=== PATIENT | male | born 1965 | race Caucasian/White ===

== ENCOUNTER 2018-12-30 02:55 | Emergency (ER) | payer OTHER, SELFPAY ==
[2018-12-30] VITALS (45 sets, daily range): BP systolic 81–147; BP diastolic 43–88; PULSE 37–85; RESP 11–24; TEMP 36.8; O2SAT 95–100
--- NOTE | 2018-12-30 03:19 | ED.GENADUL_ITS ---
Discharge Plan Disposition Patient Disposition: [facility] Discharge Details Chief Complaint: Chest Pain Clinical Impression: Chest pain, Symptomatic bradycardia Primary Care Provider: SUMMER LLANOS ED Provider: Nader Leonard Home Meds and New Rx's Prescriptions: No Action No Known Home Meds RF: 0 Medical Decision Making 53-year-old otherwise healthy and active male presenting with atypical chest pain. It is constant at this point. Initial EKG is sinus bradycardia at 48. Normal axis and intervals. No acute ST changes. Specifically no elevation or depression. History seems atypical for cardiac chest pain given his amount of physical activity and lack of previous symptoms. However, pain has become constant at this point so we will get laboratory studies including 2 sets of troponins. He is describing pleuritic pain. Doubt this is PE because of age cannot be perked out. D-dimer ordered as well. Patient will be given aspirin and will try a nitroglycerin. IV was established. Patient started to complain of being lightheaded. He was noted to be more bradycardic on monitor. His blood pressure was noted to be in the 80s. He was pale. He was laid flat. Initially thought possibly vagal reaction to the IV start. However the monitor showed no P waves. He also did not recover quickly as one would expect with a vagal reaction. An EKG was obtained. It shows narrow complex bradycardia with no P waves. There are no ST changes. Patient did not recover. Fluid bolus was started. 1 mg of atropine was given. Heart rate responded to this almost immediately. P waves returned. He was noted to be sinus on the monitor and blood pressure returned to normal. Patient felt better. He was given his aspirin. Initially held off on the nitroglycerin but then he reported worsening pain. He was given 2 sublingual nitroglycerin with minimal change in pain. Then started reporting pain into the back. Repeat EKG at this time shows sinus rhythm at 81. Continues to have normal axis and intervals. Continues to have normal ST segments. Labs are still pending. Because of the change in pain and worsening pain with associated bradycardia, I am going to scan and rule out dissection. CT scan of the chest and abdomen is read preliminarily by radiology as negative. There is no dissection, aneurysm, PE, or other abnormality. Patient did receive 2 sublingual nitroglycerin with some change in discomfort but not much. He was given 4 mg of morphine and feels much better though was not completely pain-free. He did receive aspirin. His labs are unremarkable including a negative first troponin. He has remained stable since receiving atropine. [facility] was called but is not accepting transfers for cardiology unless STEMI related. [facility] was contacted. Case discussed with cardiology, Dr. Dykes. Reviewed the patient's presentation, ED course, CT findings. Concern for possibility of a posterior CT. Recommend Plavix and heparin and transferring to ED for evaluation at [facility]. Patient has remained stable. Pacer pads are on the patient's chest but have not been needed. Work on arranging transport possibly by air if the [facility] crew is flying. Lab Data Lab results reviewed: Yes I reviewed the patient's lab results. ECG Data Attestation: I personally reviewed and interpreted this ECG (s) as follows: Interpretation: See MDM. HPI General Mode of arrival: ambulatory . Date/Time Provider Initiated Documentation: 12/30/18 02:56 . Limitations to Documentation: no limitations . Information obtained by: patient . HPI Narrative: Patient presents to ED with complaints of upper chest pain. Patient noticed it tonight when trying to go to bed. It was kind of right-sided and upper in nature and would come and go. It is now on both sides of the upper chest described as a burning pain that is pleuritic in nature. At this point it is constant. He does not really feel short of breath. He denies lightheadedness, dizziness, nausea. He has no radiation to the back. He has not had this previously. He is physically active and normally has a low heart rate. Typically has no issues when exercising. He has no significant past medical history. He does report a paternal grandfather that at a young age from heart attack. He denies fever or cough. He denies leg pain or swelling. Related Data Home Medications Medication Instructions Recorded Confirmed Unknown [No Known Home Meds] 12/30/18 12/30/18 Allergies Allergy/AdvReac Type Severity Reaction Status Date / Time No Known Allergies Allergy Unverified 12/30/18 03:08 General Stated Complaint: Chest Pain DALIA: 3 Review of Systems Review of Systems 05/28 Review of Systems completed and is negative except as stated above in HPI (Systems reviewed: Const, Eyes, ENT, Resp, CV, GI, , MSK, Skin, Neuro) PFSH Social History Smoking/Tobacco Use Status: Never Alcohol Intake: current Alcohol Intake frequency: holidays/special occasions only Drug use: Never Do you feel safe at home: Yes Do you feel safe in your relationship?: Yes Exam Narrative Exam Narrative: Vitals: Afebrile. Bradycardic otherwise normal vitals. Const: WDWN male in NAD. HEENT: NC/AT. Normal facial exam. Eyes: Normal conjunctiva and sclera. Neck: Supple. Trachea midline. Lungs: Normal respiratory effort. Lungs are clear. Cor: RRR without murmur/gallop. Good radial pulses. GI: Soft. NT/ND. No guarding or rebound. Neuro: A+O x 3. CN grossly in tact. Good strength and no focal deficit. Ext: No C/C/E. No calf tenderness. Skin: Warm and dry without rash. Course Vital Signs Temperature 98.2 F 12/30/18 03:01 Pulse 50 L 12/30/18 03:01 Respiratory Rate 16 12/30/18 03:01 Blood Pressure 147/88 H 12/30/18 03:01 Pulse Oximetry 99 12/30/18 03:01 Temperature 98.2 F 12/30/18 03:01 Temperature Source Temporal Artery Scan 12/30/18 03:01 Pulse 50 L 12/30/18 03:01 Respiratory Rate 16 12/30/18 03:06 Respiratory Effort 12/30/18 03:06 Respiratory Depth Normal 12/30/18 03:06 Blood Pressure 147/88 H 12/30/18 03:01 Pulse Oximetry 99 12/30/18 03:01 Oxygen Delivery Method Room Air 12/30/18 03:01 Oxygen Flow Rate 0 12/30/18 03:01 Pain Level 3 12/30/18 03:01 Critical Care Time Critical Care Time: Yes Total Critical Care Time: 60 Attestation: chest pain; symptomatic bradycardia
[2018-12-30] MEDS: Normal Saline 500 ML IV (03:30)
[2018-12-30] MEDS: Atropine 1 MG/10 ML SYRINGE IVP (03:31)
[2018-12-30 03:40] LABS: Abs Immature Grans 0.01 k/cumm (0.0-0.09); Absolute Basophil Count 0.02 k/cumm (0.0-0.2); Absolute Eosinophil Count 0.14 k/cumm (0.0-0.7); Absolute Lymphocyte Count 1.72 k/cumm (1.2-3.4); Absolute Monocyte Count 0.65 k/cumm (0.11-0.7); Absolute Neutrophil Count 4.45 k/cumm (1.2-6.7); Basophils % 0.3; Immature Grans % 0.1; Lymphocytes % 24.6; Mean Corp. HGB Concentration 33.3 g/dL (32.0-36.0); Mean Corpuscular Hemoglobin 32.5 pg (27.0-33.0); Mean Corpuscular Volume 97.4 fL (80-95); Mean Platelet Volume 11.1 fL (8.0-11.0); Monocytes % 9.3; Neutrophils % 63.7; Platelet Count 160 x1000/uL (130-400); RBC 4.31 m/cumm (4.50-6.00); RBC Distribution Width 12.5 % (11.8-14.1); White Blood Cell Count 6.99 k/cumm (4.4-10.8)
--- NOTE | 2018-12-30 03:48 | DI.RAD_ITS ---
SYMPTOM/DIAGNOSIS: CHEST PAIN PORTABLE AP CHEST: There are no prior comparison exams. Leads overlie the chest. The heart size is within normal limits for projection. The lungs are suboptimally inflated but appear clear. No infiltrate, effusion or pneumothorax is seen. IMPRESSION: Negative portable chest.
[2018-12-30] MEDS: Aspirin 81 MG CHEW 324 MG CH (03:54)
--- NOTE | 2018-12-30 03:54 | DI.VRAD_ITS ---
EXAM: XR Chest, 1 View EXAM DATE/TIME: 12/30/2018 3:34 AM CLINICAL HISTORY: 53 years old, male; Chest pain; Type not specified TECHNIQUE: Imaging protocol: XR of the chest, 1 view. COMPARISON: No relevant prior studies available. FINDINGS: Lungs: Unremarkable. No consolidation. Pleural space: Unremarkable. No evidence of pneumothorax. Heart/Mediastinum: Unremarkable. Heart size within normal limits for technique. Bones/joints: Unremarkable. IMPRESSION: No acute findings. Dictated and Authenticated by: Ronny Lopes MD. Ordering:MARY Doe MD
[2018-12-30 03:55] LABS: ALT 27 U/L (12-78); AST 33 U/L (15-37); Albumin 3.7 g/dL (3.4-5.0); Alkaline Phosphatase 88 U/L (46-116); Anion Gap 7.9 mmol/L (3-11); BUN 18 mg/dL (7-18); Bilirubin, Total 1.1 mg/dL (0.2-1.0); CO2 28.1 mmol/L (21.0-32.0); CREATININE 0.98 mg/dL (0.70-1.30); Calcium 8.7 mg/dL (8.5-10.1); Chloride 105 mmol/L (98-107); Glucose 103 mg/dL (70-100); Magnesium 2.1 mg/dL (1.8-2.4); Potassium 4.2 mmol/L (3.5-5.1); Sodium 141 mmol/L (136-145); Total Protein 6.7 g/dL (6.4-8.2)
[2018-12-30 04:02] LABS: Troponin I < 0.02 ng/mL (0.00-0.06)
[2018-12-30 04:11] LABS: D-Dimer 440 ng/mlFEU (<500)
[2018-12-30] MEDS: Normal Saline Flush 10 ML SYR IVP (04:13)
[2018-12-30] MEDS: Normal Saline 1,000 ML 125 ML IV (04:14)
[2018-12-30] MEDS: Omnipaque 350 MG/ML 100 ML BTL IJ (04:42)
--- NOTE | 2018-12-30 04:43 | DI.CT_ITS ---
SYMPTOM/DIAGNOSIS: CHEST AND BACK PAIN CTA CHEST, ABDOMEN AND PELVIS: CT angiography was performed with multi slice acquisition and multi planar and 3D reconstruction. CHEST: There is no evidence of pulmonary emboli or aortic dissection. The lungs show minimal dependent atelectasis. There are no pleural or pericardial effusions or evidence of pneumothorax. No adenopathy or fracture is seen. IMPRESSION: No acute abnormality. ABDOMEN AND PELVIS: There is no evidence of aortic aneurysm or dissection. The branch vessels appear patent. The liver, gallbladder, spleen, pancreas, kidneys and adrenals are unremarkable. There is no bowel dilatation or bowel wall thickening. There is no free air of free fluid or adenopathy. No fractures are identified. IMPRESSION: Negative CTA of abdomen.
--- NOTE | 2018-12-30 05:02 | DI.VRAD_ITS ---
EXAM: CT Angiography Chest With Contrast EXAM DATE/TIME: 12/30/2018 4:01 AM CLINICAL HISTORY: 53 years old, male; Chest pain and other: Back; Type not specified; Other: Chest and back pain; Prior surgery; Surgery date: 6+ months; Surgery type: Appendectomy; Additional info: Chest and back pain. ? Pe/dissection TECHNIQUE: Imaging protocol: Axial computed tomographic angiography images of the chest with intravenous contrast using CT angiography protocol. 3D rendering: MIP reconstructed images were created and reviewed. Radiation optimization: All CT scans at this facility use at least one of these dose optimization techniques: automated exposure control; mA and/or kV adjustment per patient size (includes targeted exams where dose is matched to clinical indication); or iterative reconstruction. Contrast material: [id number]; Contrast volume: 100 ml; Contrast route: IV; COMPARISON: SC XR PORTABLE CHEST AP 12/30/2018 3:39 AM FINDINGS: Pulmonary arteries: Unremarkable. No obvious pulmonary emboli. Aorta: Unremarkable. No aortic aneurysm. No aortic dissection. Lungs: Minimal dependent atelectasis. Pleural space: Unremarkable. No pneumothorax. No pleural effusion. Heart: Unremarkable. No pericardial effusion. No obvious heart strain. Lymph nodes: Unremarkable. No enlarged lymph nodes. Bones/joints: Unremarkable. No acute fracture. Soft tissues: Unremarkable. IMPRESSION: Minimal dependent atelectasis. EXAM: CT Angiography Abdomen With Contrast EXAM DATE/TIME: 12/30/2018 4:01 AM CLINICAL HISTORY: 53 years old, male; Chest pain and other: Back; Type not specified; Other: Chest and back pain; Prior surgery; Surgery date: 6+ months; Surgery type: Appendectomy; Additional info: Chest and back pain. ? Pe/dissection TECHNIQUE: Imaging protocol: Axial computed tomographic angiography images of the abdomen with intravenous contrast material. 3D rendering: MIP reconstructed images were created and reviewed. Radiation optimization: All CT scans at this facility use at least one of these dose optimization techniques: automated exposure control; mA and/or kV adjustment per patient size (includes targeted exams where dose is matched to clinical indication); or iterative reconstruction. COMPARISON: SC XR PORTABLE CHEST AP 12/30/2018 3:39 AM FINDINGS: Lungs: Unremarkable. No consolidation. VASCULATURE: Aorta: No aortic aneurysm. No aortic dissection. Celiac trunk and mesenteric arteries: No occlusion or significant stenosis. Renal arteries: No occlusion or significant stenosis. ABDOMEN: Liver: Normal. No mass. Gallbladder and bile ducts: Normal. No calcified stones. No ductal dilation. Pancreas: Normal. No ductal dilation. Spleen: Normal. No splenomegaly. Adrenals: Normal. No mass. Kidneys and ureters: Normal. No hydronephrosis. Stomach and bowel: Unremarkable. No obstruction. No mucosal thickening. Intraperitoneal space: Unremarkable. No free air. No significant fluid collection. Bones/joints: Unremarkable. No acute fracture. No dislocation. Soft tissues: Unremarkable. Lymph nodes: Unremarkable. No enlarged lymph nodes. IMPRESSION: Normal study. Dictated and Authenticated by: Ronny Lopes MD. Ordering:MRAY Doe MD
[2018-12-30] MEDS: Clopidogrel 300 MG TAB PO (05:40)
[2018-12-30 06:17] LABS: PTT Activated 22.7 sec (21.0-31.4); Prothrombin Time 10.4 sec (9.3-11.0)
[2018-12-30 07:03] LABS: Troponin I < 0.02 ng/mL (0.00-0.06)
== END 2018-12-30 07:05 ==
PROVIDERS: Emergency Provider Emergency Medicine; PCP Internal Medicine
DX: R07.9 Chest pain, unspecified (principal); R00.1 Bradycardia, unspecified
CPT/HCPCS: 36415; 71275; 74175; 80053; 93005; 96361; 96365; 96375; 99285; 71045; 83735; 84484; 85025; 85379; 85610; 85730; 93010; J3490

== ENCOUNTER 2022-03-11 11:29 | Emergency (ER) | payer OTHER, SELFPAY ==
[2022-03-11 11:34] VITALS: BP 125/79; PULSE 50; RESP 16; TEMP 36.8; O2SAT 100
--- NOTE | 2022-03-11 11:45 | DI.RAD_ITS ---
Exam(s) XR KNEE RT 3V AP,LAT,SOPHIA EXAM: XR KNEE RT 3V AP,LAT,SOPHIA CLINICAL HISTORY: right knee strain, medial pain. TECHNIQUE: 2D digital imaging was performed of the right knee. Three views obtained. AP, lateral, M erchant and PA tunnel views were obtained. COMPARISON: CR RIGHT KNEE 3 VIEWS from 04/17/2014 FINDINGS: BONES: No acute fracture is present. No bony destructive lesion is seen. JOINTS: The knee is normally aligned. There is a small joint effusion. SOFT TISSUE: Normal. IMPRESSION: 1. Small joint effusion. 2. No acute fracture or dislocation. DATA REPOSITORY: RADIATION DOSE DELIVERED:
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
== END 2022-03-11 12:37 | disposition home or self-care (01) ==
PROVIDERS: Emergency Provider Physician Assistant; PCP Internal Medicine
DX: G89.11 Acute pain due to trauma (principal); M25.561 Pain in right knee; X50.1XXA Overexertion from prolonged static or awkward postures, initial encounter; V19.9XXA Pedal cyclist (driver) (passenger) injured in unspecified traffic accident, initial encounter; Y93.55 Activity, bike riding
CPT/HCPCS: 73562; 99283; 99282

== ENCOUNTER 2024-11-11 14:23 | Emergency (ER) | payer OTHER, SELFPAY ==
[2024-11-11] VITALS (18 sets, daily range): BP systolic 112–127; BP diastolic 74–88; PULSE 47–64; RESP 20; TEMP 37; O2SAT 96–99
--- NOTE | 2024-11-11 14:15 | RT.EKG_ITS ---
APPROVED REPORT Exam: Resting ECG Reason for Exam: chest pain Patient Location: E HR:52 bpm ECG Measurements Heart Rate 52 AXIS PA 169 P 44 QRSd 95 QRS 63 QT 430 T 56 QTc 400 Conclusion Sinus bradycardia...rate< 60 Consider left ventricular hypertrophy...(S V1+R V5/V6) >3.50mV
--- NOTE | 2024-11-11 14:30 | DI.CT_ITS ---
Exam(s) CT CHEST PE CTA EXAM: CT CHEST PE CTA CLINICAL HISTORY: pleuritic chest pain. TECHNIQUE: Imaging Protocol: CT angiography of the chest was performed using pulmonary embolus chandler col. Multi planar reconstructions were performed. CONTRAST MATERIAL: Intravenous: Omnipaque 350 Contrast volume: 100 cc COMPARISON: CT CT thorax abdomen CTA from 12/30/2018 FINDINGS: CHEST: PULMONARY ARTERIES: There are no intraluminal filling defects to suggest acute pulmonary emboli.Sat LUNGS: There are no infiltrates nor evidence of pulmonary infarction.. No ominous pulmonary nodules a nd there are no pleural effusions. There are no significant focal findings in the trachea and mainst em bronchi. MEDIASTINUM: There is no hilar nor mediastinal adenopathy. CARDIAC: Heart size is upper normal. There is no pericardial effusion.Caliber of the thoracic aorta is within normal limits. There is no significant shift of the interventricular septum. PARTIALLY VISUALIZED UPPERMOST ABDOMEN: No adrenal masses. Spleen size normal. There are punctate n onobstructive calculi evident in the bilateral kidneys OSSEOUS: No significant osseous lesions.. IMPRESSION: 1. No evidence of acute pulmonary emboli. No evidence of pulmonary infarction.No infiltrates and no pleural effusions. Essentially no significant pulmonary findings. RADIATION DOSE DELIVERED: 112.72mGy.cm Total DLP DATA REPOSITORY: All CT scans at this facility are submitted to the National Radiology Data Registry (NRDR) Dose Index Registry (DIR) with the [employer] (A[employer]). RADIATION OPTIMIZATION: All CT scans at this facility use at least one of these dose optimization te chniques: automated exposure control; mA and/or kV adjustment per patient size (includes targeted exa ms where dose is matched to clinical indication); or iterative reconstruction.
[2024-11-11 14:40] LABS: Abs Immature Grans 0.01 10^3/uL (0.0-0.06); Absolute Basophil Count 0.02 10^3/uL (0.0-0.2); Absolute Eosinophil Count 0.14 10^3/uL (0.0-0.7); Absolute Lymphocyte Count 1.45 10^3/uL (1.2-3.4); Absolute Monocyte Count 0.74 10^3/uL (0.1-0.8); Absolute Neutrophil Count 4.79 10^3/uL (1.2-6.7); Basophils % 0.3 %; HCT 40.7 % (40.0-50.0); HGB 13.8 g/dL (13.5-17.5); Immature Grans % 0.1 %; Lymphocytes % 20.3 %; MCH 32.9 pg (27.0-33.0); MCHC 33.9 % (32.0-36.0); MCV 97 fL (80-95); MPV 10.3 fL (8.0-11.0); Monocytes % 10.3 %; Platelet Count 170 10^3/uL (130-400); RBC 4.19 10^6/uL (4.36-5.78); RDW 12.5 % (11.8-14.1); RDW-SD 45.1 fL; WBC 7.15 10^3/uL (4.4-10.8)
--- NOTE | 2024-11-11 14:40 | ED.GENADUL_ITS ---
Discharge Plan Disposition Patient Disposition: Home Condition: Stable Discharge Details Chief Complaint: Chest Pain Clinical Impression: Chest pain Primary Care Provider: Dilshad Peng ED Provider: Conner Saldivar Home Meds and New Rx's Prescriptions: No Action No Known Home Meds Discharge Instructions Additional Instructions: You had blood work which did not show any concerning findings including 2 negative troponins. You had a CAT scan of your chest which did not show any concerning findings. You can take 600 mg of ibuprofen every 6 hours as needed. If you are not improving within a week follow-up with your primary care provider. If you feel more ill or have severe worsening pain or difficulty breathing return to the emergency department for reevaluation HPI General Mode of arrival: ambulatory . Date/Time Provider Initiated Documentation: 11/11/24 14:24 . Limitations to Documentation: no limitations . Information obtained by: patient . History of Present Illness 59 year old M presents to the emergency department with the chief complaint of chest burning sensation, described as mild, with intensity rated at 2. Quality is described as burning, and is localized to the chest. Patient reports no radiation. Patient started experiencing this hour(s) (2) and it has been constant. No relieving factors improve symptom(s), No exacerbating factors reported . Patient notes no other symptoms.. Patient did receive the following treatments prior to arrival, none Related Data Home Medications ?Medication ?Instructions ?Recorded ?Confirmed Unknown [No Known Home Meds] 12/30/18 11/11/24 Allergies Allergy/AdvReac Type Severity Reaction Status Date / Time No Known Allergies Allergy Unverified 11/11/24 15:48 General Stated Complaint: Chest Pain DALIA: 3 Review of Systems All systems reviewed & are unremarkable except as noted in HPI and below Constitutional Constitutional: Denies chills, Denies fever(s) and Denies weakness Cardiovascular Cardiovascular: Reports chest pain and Denies dyspnea Respiratory Respiratory: Denies cough and Denies dyspnea Gastrointestinal Gastrointestinal: Denies abdominal pain, Denies nausea and Denies vomiting Neurologic Neurologic: Denies weakness Psychiatric Psychiatric: Denies depression Exam Const General: no acute distress Orientation: alert HENMD Head: normal to inspection Ears: external ears normal General nose exam: external nose normal Mouth: moist mucous membranes Eyes General: appearance normal, both eyes and all related structures Neck Neck: normal visual inspection Resp Effort & Inspection: normal respiratory effort and able to speak in complete sentences Auscultation: clear to auscultation bilaterally Cardio Jugular venous pressure: no JVD Rate: regular rate Skin General skin exam: no rashes or lesions noted Neuro General: patient alert and patient oriented x3 Extrem General: normal to inspection Psych Mental Status: mental status grossly normal Course Vital Signs Vital signs: Vital Signs Temperature 37.0 C 11/11/24 14:25 Pulse 57 L 11/11/24 14:25 Respiratory Rate 20 11/11/24 14:25 Blood Pressure 112/83 11/11/24 14:25 Pulse Oximetry 99 11/11/24 14:25 Temperature 37.0 C 11/11/24 14:25 Temperature Source Oral 11/11/24 14:25 Pulse 57 L 11/11/24 14:25 Respiratory Rate 20 11/11/24 14:25 Blood Pressure 112/83 11/11/24 14:25 Blood Pressure Position Sitting 11/11/24 14:25 Pulse Oximetry 99 11/11/24 14:25 Oxygen Delivery Method Room Air 11/11/24 14:25 Oxygen Flow Rate 0 11/11/24 14:25 Medical Decision Making 59-year-old male who denies any chronic medical problems comes in with chest burning sensation for the past few hours. He says he noticed it while he was at his house on his computer. He says this morning he felt fine without any diffi culty breathing, no fevers or chills. He denies any difficulty breathing, no radiation of the pain. He was transferred to [facility] in 2019 with bradycardia and chest pain and states he was diagnosed with pericarditis ultimately not an NSTEMI. He says his heart rate is always in the 40s or 50s. He is well- appearing speaking in full sentences. He has clear lung sounds, no JVD, no abdominal tenderness. He says that taking a deep breath does make the pain increase somewhat. Given his complaint of the chest burning will check a CBC, CMP and troponins, given the increased pain with deep breaths will obtain CT of the chest to evaluate for PE. He has no tearing back pain so I doubt dissection. Labs and imaging show no acute findings. He is hemodynamically stable and still appears well. Given 2 negative troponins and atypical symptoms feel he is stable for discharge and follow-up with his PCP, return precautions given Differential Diagnosis Differential Diagnosis: Pericarditis, esophagitis, gastritis, NSTEMI Medical Records Medical records reviewed: Yes I reviewed the patient's medical records. Lab Data Lab results reviewed: Yes I reviewed the patient's lab results. ECG Data Attestation: I personally reviewed and interpreted this ECG (s) as follows: Prior ECG tracings: available for review Interpretation: Sinus bradycardia, rate 52, SD 169, no STEMI Quality:SDOH Health Related Social Needs: No Data to Display PFSH All Active Problems (Updated 11/11/24 @ 16:36 by Conner Saldivar MD) Chest pain (Acute) MCL sprain of right knee (Acute 03/10/22) Social History Smoking/Tobacco Use Status: Never Smoking risk assessment performed?: Yes Alcohol Intake: current Alcohol Intake frequency: a few times a week Alcohol type: beer Drug use: Never Substance use type: does not use Do you feel safe at home: Yes Do you feel safe in your relationship?: Yes PAWSS Have you Been Recently Intoxicated or Drunk Within the Last 30 days?: No Have you Ever Experienced Previous Episodes of Alcohol Withdrawal?: No Have you ever Experienced Withdrawal Seizures?: No Have you ever Experienced Delirium Tremens(DT)s?: No Have you ever undergone Alcohol Rehabilitation Treatment (i.e, inpt ot outpatient treatment programs)?: No Have you ever Experienced Blackouts?: No Have you ever Combined Alcohol with other Downers within the last 90 days?: No Have you ever Combined Alcohol with any other Substance of Abuse during the last 90 days?: No Positive Blood Alcohol level on Presentation? [PCS.BAL]: No Evidence of Increased Autonomic Activity (i.e. HR>120, tremor, sweating, agitation, nausea)?: No Result: 0
[2024-11-11 15:05] LABS: ALT 37 U/L (16-63); AST 35 U/L (15-37); Albumin 3.8 g/dL (3.4-5.0); Alkaline Phosphatase 83 U/L (46-116); Anion Gap 9.4 mmol/L (3-11); BUN 15 mg/dL (7-18); Bilirubin, Total 1.1 mg/dL (0.2-1.0); CO2 28.6 mmol/L (21.0-32.0); CREATININE 0.9 mg/dL (0.70-1.30); Chloride 105 mmol/L (98-107); Estimated GFR 98.38 (mL/min/1.73m2); Glucose 94 mg/dL (74-106); Lipase 46 U/L (<78); Potassium 3.9 mmol/L (3.5-5.1); Sodium 143 mmol/L (136-145); Total Protein 6.9 g/dL (6.4-8.2); Troponin I 10 ng/L (<or=76)
[2024-11-11] MEDS: Normal Saline - Diluent 50 ML VIAL IJ (15:26)
[2024-11-11] MEDS: Omnipaque 350 MG/ML 100 ML BTL IJ (15:27)
[2024-11-11 16:16] LABS: Troponin I 9 ng/L (<or=76)
== END 2024-11-11 17:05 | disposition home or self-care (01) ==
PROVIDERS: Emergency Provider Emergency Medicine; PCP Internal Medicine
DX: R07.9 Chest pain, unspecified (principal); R00.1 Bradycardia, unspecified
CPT/HCPCS: 71275; 80053; 83690; 93005; 99285; 84484; 85025; 93010; 99284; J3490